=== PATIENT | male | born 1985 | race Caucasian/White ===

== ENCOUNTER 2016-08-04 00:41 | Inpatient (IN) | payer OTHER ==
--- NOTE | ~2016-08-04 | HP ---
Unit #: [id number] #: [id number] Patient: JERED PERKINS [id number] [facility] [address] [place] [address] [id number] I MR#: [id number] NAME: JERED PERKINS ROOM: P205 Age: 30 Sex: M Admission Date: 08/04/2016 : 1985 Attending Physician: Cira Chapman M.D. Admitting Physician: Cira Chapman M.D. Primary Care Physician: Generic Doctor Not In System HISTORY AND PHYSICAL HISTORY OF PRESENT ILLNESS Jered is a 30-year-old male admitted 08/04/[address] [place] [address] for detox from alcohol. PAST MEDICAL HISTORY None. PAST SURGICAL HISTORY Right hand surgical repair after an injury. ALLERGIES None. SOCIAL HISTORY He smokes 2 packs of cigarettes daily. Drinks half gallon of alcohol daily. Occasional meth use. He is currently single and living with his grandmother and grandfather and his children. FAMILY HISTORY Noncontributory. REVIEW OF SYSTEMS CONSTITUTIONAL: No fever or chills. HEENT: Denies any sore throat, ear pain or runny nose. CARDIOVASCULAR: Denies chest pain, irregular heart rhythm or palpitations. CHEST: Denies shortness of breath or cough. No hemoptysis. GASTROINTESTINAL: Denies nausea, vomiting, diarrhea or chronic constipation. ENDOCRINE: Denies history of increased thirst or urination. No recent significant weight loss or gain. GENITOURINARY: Denies dysuria, frequency, or hematuria. SKIN: Denies any rashes. HEMATOLOGIC: Denies history of increased bleeding or bruising. MUSCULOSKELETAL: Denies any hot, swollen joints. No generalized muscle pain. NEUROLOGIC: Denies problems with vision or speech. No frequent, severe headaches. No numbness, tingling or weakness in any extremities. Denies loss of bladder or bowel control. CURRENT MEDICATIONS None. PHYSICAL EXAMINATION Unit #: [id number] #: [id number] Patient: JERED PERKINS GENERAL: Alert, oriented, in no acute distress. VITAL SIGNS: Blood pressure 143/80, heart rate 94, respirations 16, temperature 98.1. HEIGHT: 6 feet 0. WEIGHT: 170 pounds. SKIN: Warm and dry without rash or lesion. HEENT: Normocephalic. TMs not viewed. Oral and nasal passages clear. Conjunctivae clear. PERRLA. EOMs intact. NECK: Supple without lymphadenopathy or thyromegaly. HEART: Regular rate and rhythm without murmur. LUNGS: Clear. ABDOMEN: Soft, nontender, without masses or hepatosplenomegaly. : Not done. EXTREMITIES: No evidence of cyanosis, clubbing or edema. Moves all without focal deficit. NEUROLOGICAL: Grossly within normal limits. Cranial Nerves: II: Visual coyle are intact. III, IV AND : Extraocular movements are intact. Pupils are equal, round and reactive to light. V: Facial sensation is grossly normal. VII: Facial movements and expression are normal. VIII: Auditory acuity grossly intact. IX, X: Uvula is midline. Phonation is normal. XI: Patient shrugs shoulders and turns head normally. XII: Tongue protrudes in the midline. Sensory and Motor Function: Sensory and motor sensation is grossly normal. Motor: moves all extremities well. Coordination: Gait is normal. Deep Tendon Reflexes: Intact. IMPRESSION Psychiatric admission. RECOMMENDATIONS PSYCHIATRIC: Per psychiatrist. MEDICAL: No contraindications to participate in facility's activities. MEDICAL PROGNOSIS Good. MEDICAL CONDITION Stable. Dictated by... Dina Landrum/tamiko TD: 08/04/2016 18:50 JOB #: [id number] Unit #: [id number] #: [id number] Patient: JERED PERKINS HISTORY AND PHYSICAL Page [address]IREZ APRN X HISTORY AND PHYSICAL
--- NOTE | ~2016-08-04 | PN ---
Unit #: [id number] #: [id number] Patient: JERED STRONG [id number] [facility] [address] [place] [address] [id number] I MR#: [id number] NAME: JERED STRONG ROOM: P207 Age: 30 Sex: M Admission Date: 08/04/2016 : 1985 Attending Physician: Cira Chapman M.D. Admitting Physician: Cira Chapman M.D. Primary Care Physician: Generic Doctor Not In System [facility] PROGRESS NOTES DATE August 06, 2016 DISCUSSION Mr. Strong is a 30-year-old white male, who was seen today and chart was reviewed and the case was discussed with the staff. He has been anxious, withdrawn, but has not shown any agitation, irritability, and has been cooperative with the treatment recommendations. He has been taking the medications and tolerating them fairly well with no reported side effects. MENTAL STATUS EXAMINATION Young white male, who was casually dressed with fair personal hygiene and appears to be in no acute distress or discomfort. He was awake and alert on interaction with intact orientation. His mood is anxious with a congruent affect. He denies any suicidal or homicidal ideations. His insight and judgment remain slightly impaired. TREATMENT PLAN 1. We will continue him on his current medications and treatment protocol, and will monitor his response to the medications, and make further adjustments as needed. 2. We will continue to followup. Dictated by... Obed Juarez/matthew TD: 08/08/2016 05:18 JOB #: [id number] Unit #: [id number] #: [id number] Patient: JERED STRONG PROGRESS NOTES Page 1 of 1 X Cira Chapman MD PROGRESS NOTE
--- NOTE | ~2016-08-04 | PA ---
Unit #: [id number] #: [id number] Patient: JERED STRONG [id number] [facility] [address] [place] [address] [id number] I MR#: [id number] NAME: JERED STRONG ROOM: P205 Age: 30 Sex: M Admission Date: 08/04/2016 : 1985 Date of Assessment: Attending Physician: Cira Chapman M.D. Admitting Physician: Cira Chapman M.D. PSYCHIATRIC ASSESSMENT DATE OF SERVICE 08/04/2016. IDENTIFYING DATA Mr. Strong is a 30-year-old single white male, who is a resident of [place], [place], and was self-referred to the hospital on a voluntary basis. CHIEF COMPLAINT "I'm here to detox from alcohol." HISTORY OF PRESENT ILLNESS Mr. 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 He does report increasing depression, anxiety, irritability, disturbed sleep, psychomotor retardation, feelings of hopelessness and helplessness, and anger issues and stating when he is angry, he would threaten to kill himself by grabbing a kitchen knife and cut on himself or hurt the wall with his fist and reports that he was admitted to [facility] a year ago for suicide threats and alcohol intoxication, and currently, denies any suicidal ideations, intent, or plan. SUBSTANCE ABUSE HISTORY The patient has an extensive history of substance abuse as he reports that he has experimented with inhalants, opioids, acid, cocaine, and cannabis, but alcohol has been his drug of choice as he mentions that he has been drinking since he was 17 years old and currently has been drinking half a gallon of vodka on a daily basis and has been on a binge since 04/2016. PAST PSYCHIATRIC HISTORY The patient has had a history of inpatient and outpatient psychiatric treatment at [facility] as well as at [facility], and review of the medical records indicate currently that he is not active in any treatment program, is not seeing a psychiatrist, and is not taking any psychotropic medications. PAST MEDICAL HISTORY No acute or chronic medical illness. Unit #: [id number] #: [id number] Patient: JERED STRONG ALLERGIES No known medication allergies. CURRENT MEDICATIONS None. FAMILY HISTORY The patient reports history of substance abuse as well as history of mood disorder in the family. DEVELOPMENTAL HISTORY The patient denies any history of learning disabilities or developmental delays, though he reports that he fell at the age of 2 years from 10 feet height and hit his head on the concrete floor causing him some head trauma. He denies any history of physical or sexual abuse in childhood. PERSONAL AND SOCIAL HISTORY A 30-year-old white male, who reports that he is single, unemployed, and lives at home with his grandmother, grandfather, his 11-year-old daughter, and his 8-year-old son and has fairly decent social support system. MENTAL STATUS EXAMINATION Young white male, who was casually dressed with a fair personal hygiene, appears to be in no acute distress or discomfort. He was awake and alert on interaction with intact orientation to time, place, and person. His mood was anxious and depressed with a congruent affect. His speech was slow and restricted in content. His thought processes were disorganized with some looseness of associations and flight of ideas. He denies any current suicidal or homicidal ideations and also denies any auditory or visual hallucinations. His insight and judgment remain significantly impaired. DIAGNOSTIC IMPRESSION Psychiatric: Alcohol dependence, moderate, in acute withdrawals and alcohol-induced mood disorder. Medical: None. Stressors: Moderate psychosocial stressors. TREATMENT PLAN 1. The patient has presented with a history of substance abuse and mood disorder and has been decompensating and will need inpatient hospitalization for detoxification, safety, and stabilization. We will start him on detox protocol. We will closely monitor for any worsening withdrawal symptoms. 2. Supportive therapy was provided to the patient. 3. Safe, structured, and nourishing environment will be provided. ESTIMATED LENGTH OF STAY 5 to 7 days. ABILITY TO HELP SELF Limited. WILLINGNESS TO HELP SELF The patient appears to be willing to help self. STRENGTHS 1. Communicative. Unit #: [id number] #: [id number] Patient: JERED STRONG 2. Cooperative. PROBLEMS 1. Chronic dysphoric symptoms. 2. Chronic chemical dependency. 3. Poor social support system. DISCHARGE CRITERIA This will be contingent upon the patient's ability to go through detox without having any significant withdrawal symptoms as well as his ability to stay safe to himself, particularly after discharge from the hospital. Dictated by... Obed Juarez/lavonne TD: 08/04/2016 13:38 JOB #: [id number] PSYCHIATRIC ASSESSMENT Page 1 of 1 X Cira Chapman MD X PSYCHIATRIC ASSESSMENT
--- NOTE | ~2016-08-04 | PN ---
Unit #: [id number] #: [id number] Patient: JREED STRONG [id number] [facility] [address] [place] [address] [id number] I MR#: [id number] NAME: JERED STRONG ROOM: P207 Age: 30 Sex: M Admission Date: 08/04/2016 : 1985 Attending Physician: Cira Chapman M.D. Admitting Physician: Cira Chapman M.D. Primary Care Physician: Generic Doctor Not In System [facility] PROGRESS NOTES DATE OF SERVICE: 08/05/2016 SUBJECTIVE Mr. Strong is a 30-year-old white male who was seen today and chart was reviewed and case was discussed with the staff. He has been anxious, withdrawn, unkempt, disheveled, seclusive to himself care of his personal hygiene. However, he has not shown any agitation or aggression. MENTAL STATUS EXAMINATION Young white male who was casually dressed with a fair personal hygiene and appears to be in no acute distress or discomfort. He was awake and alert on interaction with intact orientation. His mood was anxious and depressed with a congruent affect. His speech is slow and restricted in content. He denies any suicidal or homicidal ideations and also denies any auditory or visual hallucinations. His insight and judgment remain slightly impaired. TREATMENT PLAN 1. We will continue him on his current medications and treatment protocol. We will monitor his response and make further adjustments as needed. 2. We will continue to follow up. Dictated by... Obed Juarez/lavonne TD: 08/07/2016 07:09 JOB #: [id number] Unit #: [id number] #: [id number] Patient: JERED STRONG PROGRESS NOTES Page 1 of 1 X Cira Chapman MD PROGRESS NOTE
--- NOTE | ~2016-08-04 | DS ---
Unit #: [id number] #: [id number] [facility]: [facility] [id number] [facility] [address] [place] [address] [id number] MR#: [id number] NAME: JERED STRONG ROOM: [facility] Age: 30 Sex: M Admission Date: 08/04/2016 : 1985 Discharge Date: 08/08/2016 Attending Physician: Cira Chapman M.D. Primary Care Physician: Generic Doctor Not In System DISCHARGE SUMMARY IDENTIFYING DATA Mr. Strong is a 30-year-old single white male who is a resident of [place], [place] and was self-referred to the hospital on a voluntary basis. DISCHARGE DIAGNOSES Psychiatric: Alcohol dependence, moderate and acute withdrawals; alcohol-induced mood disorder. Medical: None. Stressors: Moderate psychosocial stressors. HISTORY OF PRESENT ILLNESS Please see initial psychiatric evaluation for details. PAST PSYCHIATRIC HISTORY Please see initial psychiatric evaluation for details. PAST MEDICAL HISTORY Please see initial psychiatric evaluation for details. HOSPITAL COURSE The patient was admitted to the adult chemical dependency and psychiatric unit at [facility] and was oriented to the hospital environment. Routine p.r.n. medications were initiated, and he was started on the alcohol detox protocol and was closely monitored. He was taking the medications regularly and was tolerating them fairly well and was able to come out of the detox without any complications and was willing to continue treatment on an outpatient basis and as such, it was decided that he will be discharged home and will continue treatment on an outpatient basis. DISCHARGE MEDICATIONS None. DISCHARGE CONDITION Stable. PROGNOSIS Fair. Dictated by... Cira Chapman M.D. Unit #: [id number] #: [id number] Patient: JERED STRONG IAA/modl TD: 08/08/2016 17:43 JOB #: [id number] DISCHARGE SUMMARY Page 1 of 1 X Cira Chapman MD X DISCHARGE SUMMARY
--- NOTE | ~2016-08-04 | PN ---
Unit #: [id number] #: [id number] Patient: JERED STRONG [id number] [facility] [address] [place] [address] [id number] MR#: [id number] NAME: JERED STRONG ROOM: P207 Age: 30 Sex: M Admission Date: 08/04/2016 : 1985 Attending Physician: Cira Chapman M.D. Admitting Physician: Cira Chapman M.D. Primary Care Physician: Generic Doctor Not In System [facility] PROGRESS NOTES DATE OF SERVICE 08/07/2016 DISCUSSION Mr. Strong is a 30-year-old white male who was seen today. Chart was reviewed and case was discussed with the staff. He has been doing fairly well and appeared to be showing improvement in his mood and functioning and has been cooperative with the treatment recommendations as he has been taking the medications and tolerating them fairly well with no reported side effects. MENTAL STATUS EXAMINATION Young white male who is casually dressed with fair personal hygiene, appears to be in no acute distress or discomfort. He was awake and alert on interaction with intact orientation. His mood is anxious with congruent affect. His speech is slow and goal-directed. He denies any suicidal or homicidal ideations and also denies any auditory or visual hallucinations. His insight and judgment remain slightly impaired. TREATMENT PLAN 1. We will continue him on his current medications and treatment protocol. We will monitor his response to the medications and make further adjustments as needed. 2. We will continue to follow up. Dictated by... Obed Juarez/franklyn TD: 08/08/2016 10:48 JOB #: [id number] Unit #: [id number] #: [id number] Patient: JERED STRONG PROGRESS NOTES Page 1 of 1 X Cira Chapman MD PROGRESS NOTE
[2016-08-05 12:00] LABS: THYROID STIMULATING HORMONE 1.82 uIU/ml (0.34-5.60)
[2016-08-05 12:09] LABS: FREE THYROXIN (T4) 0.7 ng/dL (0.58-1.64)
[2016-08-05 12:28] LABS: AMPHETAMINE NEG (NEG); BARBITURATES NEG (NEG); BENZODIAZEPINES POS (NEG); COCAINE NEG (NEG); MARIJUANA NEG (NEG); OPIATES NEG (NEG); TRICYCLIC ANTIDEPRESSANTS POS (NEG); U METHADONE NEG (NEG)
== END 2016-08-08 10:25 | DRG 897 ==
LOC: P2S 00:41
PROVIDERS: Psychiatry & Neurology Psychiatry
PROC: HZ2ZZZZ Detoxification Services for Substance Abuse Treatment (ICD-10-PCS; principal; 2016-08-04)
DX: F10.230 Alcohol dependence with withdrawal, uncomplicated (principal); F10.24 Alcohol dependence with alcohol-induced mood disorder; F17.210 Nicotine dependence, cigarettes, uncomplicated; F15.90 Other stimulant use, unspecified, uncomplicated
CPT/HCPCS: 80307; 84439; 84443; 86592

== ENCOUNTER 2016-10-14 18:42 | Emergency (ER) | payer OTHER ==
[2016-10-14] MEDS ORDERED: STRATTERA40 MG (18:56)
[2016-10-14] MEDS ORDERED: DEPAKOTE PO (18:56)
[2016-10-14] MEDS ORDERED: DESYREL100 MG (18:56)
== END 2016-10-14 19:32 | disposition home or self-care (01) ==
LOC: SED 18:42
DX: S10.96XA Insect bite of unspecified part of neck, initial encounter (principal); I25.2 Old myocardial infarction; F17.210 Nicotine dependence, cigarettes, uncomplicated; Z79.899 Other long term (current) drug therapy; W57.XXXA Bitten or stung by nonvenomous insect and other nonvenomous arthropods, initial encounter
CPT/HCPCS: 90715; 99282